=== PATIENT | female | born 1955 | race Caucasian/White ===

== ENCOUNTER 2017-04-05 01:37 | Emergency (ER) | payer MEDICARE, OTHER ==
[~2017-04-05] VITALS: Ht 157.5 cm; Wt 81.6 kg
[~2017-04-05 01:37] MED LIST: AMLO5TAB4 PO; AMOX500C2 PO; ARIP2TAB10 PO; BETA15CR37 TP; CIPR500T78 PO; CLIN300C3 PO; DESV50TA PO; FAMO-119 PO; FLUO40CA PO; HYDR-3062 PO; HYDR-3456 PO; HYDR-3876 PO; HYDR12.5 PO; HYDR28CR19 TP; HYOS0.1216 PO; IBUP-1780 PO; IBUP200T48 PO; LORA-405 PO; LORA10TA7 PO; LOSA50TA36 PO; LOSA50TA6 PO; METH4TAB PO; NAPR-243 PO; NAPR-689 PO; NAPR220C11 PO; NAPR500T3 PO; NITR50CA4 PO; PHEN200T27 PO; QUET50TA43 PO; SULF-222 PO; TRAZ150T72 PO; ZLP10T PO; bp med; hydrocodone; losartan
--- NOTE | 2017-04-05 01:52 | ED Fall/Injury ---
General Stated Complaint: HEAD LAC Source: patient, family (son) Exam Limitations: no limitations History of Present Illness Time seen by provider: 01:51 Initial Comments Patient was walking in the driveway and fell tripped and landed face first onto a stephanie. She had profuse bleeding from her front or head. She has bit of a headache and tenderness on her left church. She's not having any nausea or pain anywhere else. Denies any dysuria, shortness of breath, chest pain, fever. Allergies and Home Medications Allergies Coded Allergies: No Known Drug Allergies (Unverified , 01/05/10) Home Medications Amlodipine Besylate 5 Mg Tablet, 5 MG PO DAILY, #30 Prescribed by: NATACHA BARKSDALE on 07/29/16 1131 Fluoxetine HCl 40 Mg Capsule, 40 MG PO DAILY, (Reported) Hydrochlorothiazide 12.5 Mg Capsule, 12.5 MG PO DAILY@0900, #30 Prescribed by: NATACHA BARKSDALE on 07/29/16 1131 Loratadine 10 Mg Tablet, 10 MG PO DAILY, (Reported) Losartan Potassium 50 Mg Tablet, 100 MG PO DAILY, #30 Prescribed by: NATACHA BARKSDALE on 07/29/16 1131 Trazodone HCl 150 Mg Tablet, 150 MG PO HS, (Reported) Constitutional: No chills, No diaphoresis, No fever Eyes: Denies Blindness, Denies Blurred Vision, Denies Drainage Ears, Nose, Mouth, Throat: denies ear pain, denies ear discharge Respiratory: No cough, No short of breath Cardiovascular: No chest pain, No palpitations Gastrointestinal: No abdominal pain, No constipation, No diarrhea, No nausea Genitourinary: No dysuria, No frequency Musculoskeletal: No back pain, No joint pain Skin: No pruritus, No rash, other (laceration left forehead) Psychiatric/Neurological: Headache, Denies Numbness, Denies Paresthesia Past Pfnwabs-Qfkydh-Rmqaho Hx Patient Social History Alcohol Use: Denies Use Recreational Drug Use: No Smoking Status: Never a Smoker Recent Foreign Travel: No Contact w/Someone Who Travel: No Recent Hopitalizations: No Immunizations Up To Date Tetanus Booster (TDap): Less than 5yrs Seasonal Allergies Seasonal Allergies: No Surgeries HX Surgeries: Yes (cataract) Surgeries: Eye Surgery, Joint Replacement, Orthopedic, Renal Respiratory Hx Respiratory Disorders: No Cardiovascular Hx Cardiac Disorders: Yes Cardiac Disorders: Hypertension Neurological Hx Neurological Disorders: No Reproductive System Hx Reproductive Disorders: No Sexually Transmitted Disease: No HIV/AIDS: No Female Reproductive Disorders: Denies Genitourinary Hx Genitourinary Disorders: Yes Genitourinary Disorders: Kidney Stones Gastrointestinal Hx Gastrointestinal Disorders: Yes Gastrointestinal Disorders: Gastroesophageal Reflux Musculoskeletal Hx Musculoskeletal Disorders: Yes (ARTHRITIS, DJD) Musculoskeletal Disorders: Degenerate Disk Disease, Arthritis, Chronic Back Pain Endocrine Hx Endocrine Disorders: No HEENT HX ENT Disorders: No Cancer Hx Cancer: No Psychosocial Hx Psychiatric Problems: Yes Behavioral Health Disorders: Anxiety, Depression Integumentary HX Skin/Integumentary Disorder: No Blood Transfusions Hx Blood Disorders: No Adverse Reaction to a Blood Tr: No Family Medical History Significant Family History: No Pertinent Family Hx Family Medial History: Diabetes mellitus G8 SISTER Hypertension 19 MOTHER Physical Exam Vital Signs Vital Sign - Last 12Hours 04/05/17 01:46 Temp 98.1 Pulse 82 Resp 20 B/P (MAP) 201/119 Pulse Ox 99 O2 Delivery Room Air Capillary Refill : General Appearance: WD/WN, mild distress HEENT: PERRL/EOMI, normal ENT inspection, TMs normal, pharynx normal Neck: non-tender, full range of motion, supple, normal inspection Cardiovascular: normal peripheral pulses, regular rate, rhythm, no edema Respiratory: chest non-tender, lungs clear, normal breath sounds Peripheral Pulses: 3+ Dorsalis Pedis (R), 3+ Left Dors-Pedis (L) Gastrointestinal: normal bowel sounds, non tender, soft Back: normal inspection, no vertebral tenderness Extremities: normal range of motion, non-tender, normal inspection, normal capillary refill 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, no motor/sensory deficits, alert, oriented x 3 Skin: normal color, warm/dry [place] Coma Score Best Eye Response: (4) Open Spontaneously Best Verbal Response: (5) Oriented Best Motor Response: (6) Obeys Commands [place] Total: 15 Laceration Repair : Wound Location: Scalp Wound Length (cm): 3 Wound's Depth, Shape: linear, sub Q Wound Explored: clean Irrigated w/ Saline (ccs): 25 Anesthesia: 1% Lidocaine Volume Anesthetic (ccs): 8 Wound Debrided: minimal Suture: Ethlion Suture Size: 4-0 Number of Sutures: 7 Layer Closure?: 1 Sterile Dressing Applied?: Yes Progress Clean the site with chlorhexidine. Infiltrated with 1% lidocaine. Soon as the patient was numbed with then explored the wound no foreign debris was removed. Irrigated and began suturing with 4-0 Ethilon. 7 sutures. Patient tolerated the procedure well. Dressing with T A O applied Progress/Results/Core Measures Results/Orders My Orders Orders - BIENVENIDO QUINTERO Ct Head/Cervical Spine Wo (04/05/17 01:52) Lidocaine/Epi 2% 1:100,000 (Xylocaine/Ep (04/05/17 02:30) Lidocaine 2% Injection 20 Ml (Xylocaine (04/05/17 02:30) Lidocaine 2% Injection 20 Ml (Xylocaine (04/05/17 02:22) Dipht,Pertuss(Acell),Tet Adult (Boostrix (04/05/17 03:00) Medications Given in ED Current Medications Medications Dose Ordered Sig/Sameer Route Start Time Stop Time Status Last Admin Dose Admin Diphtheria/ Tetanus/Acell Pertussis 0.5 ml ONCE ONCE IM 04/05/17 03:00 04/05/17 03:01 DC 04/05/17 03:10 0.5 ML Lidocaine HCl 20 ml ONCE ONCE INJ 04/05/17 02:30 04/05/17 02:31 DC 04/05/17 02:33 20 ML Vital Signs/I&O Vital Sign - Last 12Hours 04/05/17 01:46 Temp 98.1 Pulse 82 Resp 20 B/P (MAP) 201/119 Pulse Ox 99 O2 Delivery Room Air Progress Note : Time: 02:06 Progress Note 61-year-old not on blood thinners. We'll get her head scan shows a pretty significant scalp laceration and head tenderness. Afterwards we'll give her some back up. She is not getting any reason to think that it be infectious etiology for her fall. Diagnostic Imaging Diagonstic Imaging: CT Plain Films/CT/US/NM/MRI: head Comments No bleed, mass effect, intracranial shift, fracture noted on CT No intracranial mass effect, mass lesion or hemorrhage. There is no evidence of acute infarct or hydrocephalus. Periventricular subcortical white matter hypodensities are seen which most likely a sequela of chronic hypervascular ischemic disease. The status is post bilateral lens replacement. The paranasal sinuses right mastoid air cells and tympanic cavities appear normal. Partial opacification right mastoid air cells. There is no skull fracture. There is a small left frontal scalp laceration. C-spine with minimal anterolisthesis of C3 on C4 and C4 on C5. There is no cervical spine fracture or subluxation or epidural hematoma. there's per vertebral soft tissue tissues appear normal. Reviewed: Reviewed [place] Hawk Study, Reviewed by Me Departure Impression Impression: Primary Impression: Fall Qualified Codes: W19.XXXA - Unspecified fall, initial encounter Additional Impression: Laceration of scalp Qualified Codes: S01.01XA - Laceration without foreign body of scalp, initial encounter Disposition: HOME, SELF-CARE Condition: Improved Departure-Patient Inst. Decision time for Depature: 03:20 Referrals: RADHA REYNOSO MD (PCP/Family) Primary Care Physician Patient Instructions: Laceration Repair With Stitches (DC), Laceration Repair With Nael (DC), Laceration Repair With Glue (DC) Add. Discharge Instructions: Keep the wound cleaned with gentle soap and water. It will be okay to bathe after 2-3 days otherwise showers only. Tylenol or ibuprofen for your pain as well as a cold pack. If your wound is getting red and has drainage or you start having fevers chills or worsening pain you can return to the ER or follow up with your doctor. Plan on seeing your doctor in 5-7 days to have the stitches removed or you may return to the ER to have the stitches removed. Copy Copies To 1: RADHA REYNOSO MD, TITUS J Apr 05, 2017 01:52
[2017-04-05] MEDS ORDERED: LIDOCAINE 2% 20 ML (XYLOCAINE) VIAL ONE (02:22)
[2017-04-05] MEDS ORDERED: LIDOCAINE/EPI 2% 1:100,00 (XYLOCAINE) 20 ML VIAL INJ ONE (02:30)
[2017-04-05] MEDS ORDERED: LIDOCAINE 2% 20 ML (XYLOCAINE) VIAL INJ ONE (02:30)
[2017-04-05] MEDS ORDERED: TETANUS,DIPTH,PERTUSS P/F (BOOSTRIX) 0.5 ML VIAL IM ONE (03:00)
[2017-04-05 03:29] VITALS: BP 188/99
--- NOTE | 2017-04-05 07:33 | Diagnostic Imaging Report ---
PROCEDURE: CT head and CT cervical spine without contrast. TECHNIQUE: Multiple contiguous axial images were obtained through the brain and cervical spine without the use of intravenous contrast. Sagittal and coronal reformations through the cervical spine were then performed. INDICATION: Fall. COMPARISON: None. CT HEAD: Age-related cerebral volume loss and chronic small vessel ischemic changes are present. There was no midline shift or mass effect. There was no hemorrhage or evidence of acute ischemia. Chronic lacunar infarcts are present. The bony calvarium is normal. Paranasal sinuses and mastoids are clear IMPRESSION: 1. No acute abnormality. 2. Age-related cerebral volume loss and chronic small vessel ischemic changes. 3. Chronic appearing lacunar infarcts. CT CERVICAL SPINE: Alignment is normal. There is no subluxation or fracture. Multilevel degenerative changes are seen throughout the disc spaces and facet joints. Multilevel foraminal and central canal stenosis is seen. There is no osseous lesion. IMPRESSION: No traumatic malalignment or fracture. Dictated by: Dictated on workstation # [id number]
== END 2017-04-05 03:29 | disposition home or self-care (01) ==
LOC: EDUNIT# 01:37 → ER 01:39
DX: S01.01XA Laceration without foreign body of scalp, initial encounter (principal); F41.9 Anxiety disorder, unspecified; F32.9 Major depressive disorder, single episode, unspecified; M47.9 Spondylosis, unspecified; K21.9 Gastro-esophageal reflux disease without esophagitis; I10 Essential (primary) hypertension; Z87.442 Personal history of urinary calculi; Z96.659 Presence of unspecified artificial knee joint; W01.198A Fall on same level from slipping, tripping and stumbling with subsequent striking against other object, initial encounter
CPT/HCPCS: 70450; 72125; 90471; 90715; 99284

== ENCOUNTER 2017-04-11 11:37 | Emergency (ER) | payer MEDICARE ==
[~2017-04-11] VITALS: Ht 157.5 cm; Wt 83.9 kg
--- OUTSIDE RECORDS SUMMARY | 2017-04-11 11:43 | XMS REPORT ---
Author Author REGINA BUCHANAN Organization [employer] Address Unknown Phone Unavailable Care Team Providers Care Manager Environmental Health And Safety Name Role Phone REGINA BUCHANAN CP Unavailable Allergies No Known Allergies Problems Problem Type Condition Code Onset Dates Condition Status Problem Arthritis M19.90 Active Problem Mood disorder F39 Active Problem Allergic rhinitis, unspecified allergic rhinitis trigger, unspecified rhinitis seasonality J30.9 Active Assessment Mood disorder F39 Active Assessment Allergic rhinitis, unspecified allergic rhinitis trigger, unspecified rhinitis seasonality J30.9 Active Assessment Arthritis M19.90 Active Medications Medication Code System Code Instructions Start Date End Date Status Dosage Claritin [facility] [address]-74 10 MG Orally Once a day 1 tablet Ibuprofen [facility] [address]-45 800 MG Orally Three times a day 1 tablet Procedures Procedure Coding System Code Date Office Visit, New Pt., Level 2 CPT-4 33788 Jun 25, 2016 Vital Signs Date/Time: Jun 25, 2016 Cardiac Monitoring Heart Rate 80 bpm Weight 188 lbs Height 62 in BMI 34.38 Index Blood Pressure Diastolic 64 mmHg Blood Pressure Systolic 110 mmHg Results No Known Results Summary Purpose [employer] Submission
--- OUTSIDE RECORDS SUMMARY | 2017-04-11 11:43 | XMS REPORT ---
Author Author REGINA BUCHANAN [facility] [employer] Address Unknown Phone Unavailable Care Team Providers Care Banquet Pilot Name Role Phone REGINA BUCHANAN CP Unavailable Allergies No Known Allergies Problems Problem Type Condition Code Onset Dates Condition Status Assessment Elevated blood pressure I10 Active Assessment Well woman exam Z01.419 Active Assessment Hypertension, benign I10 Active Problem Other chronic pain G89.29 Active Problem Uterine prolapse N81.4 Active Problem Hypertension, benign I10 Active Problem Arthritis M19.90 Active Problem Mood disorder F39 Active Problem Elevated blood pressure I10 Active Problem Allergic rhinitis, unspecified allergic rhinitis trigger, unspecified rhinitis seasonality J30.9 Active Assessment Pain in right hip M25.551 Active Assessment Other chronic pain G89.29 Active Assessment Pain in left knee M25.562 Active Medications No Known Medications Procedures Procedure Coding System Code Date COMPLETE CBC W/AUTO DIFF WBC CPT-4 44197 Jul 17, 2016 GLYCATED HEMOGLOBIN TEST CPT-4 31431 Jul 17, 2016 COMPREHEN METABOLIC PANEL CPT-4 31574 Jul 17, 2016 X-RAY EXAM OF KNEE, 1 OR 2 CPT-4 62998 Jul 17, 2016 LIPID PANEL CPT-4 19904 Jul 17, 2016 VENIPUNCT, ROUTINE* CPT-4 30122 Jul 17, 2016 X-RAY EXAM HIP UNI 2-3 VIEWS CPT-4 79682 Jul 17, 2016 Results Name Result Date Reference Range Unit Abnormality Flag CBC ----Lymphs 39 66081376 % ----Neutrophils 49 08148318 % ----Baso (Absolute) 0.0 [id number] 0.0-0.2 x10E3/uL ----Hemoglobin 12.7 92149238 11.1-15.9 g/dL ----Eos (Absolute) 0.4 81922354 0.0-0.4 x10E3/uL ----Hematocrit 38.6 14815367 34.0-46.6 % ----Monocytes(Absolute) 0.3 13860131 0.1-0.9 x10E3/uL ----MCV 86 67757618 79-97 fL ----Lymphs (Absolute) 2.3 01951667 0.7-3.1 x10E3/uL ----MCH 28.2 39227381 26.6-33.0 pg ----Neutrophils (Absolute) 2.9 69854700 1.4-7.0 x10E3/uL ----MCHC 32.9 24919304 31.5-35.7 g/dL ----Immature Granulocytes 0 87081145 % ----Basos 1 83165714 % ----RDW 14.7 58131402 12.3-15.4 % ----Immature Grans (Abs) 0.0 92084082 0.0-0.1 x10E3/uL ----WBC 5.8 59071664 3.4-10.8 x10E3/uL ----Platelets 256 67209178 150-379 x10E3/uL ----Eos 6 91196805 % ----RBC 4.50 11335850 3.77-5.28 x10E6/uL ----Monocytes 5 39345916 % LIPID PANEL ----LDL Cholesterol Calc 83 65254357 0-99 mg/dL ----VLDL Cholesterol Alberto 10 24342134 5-40 mg/dL ----Cholesterol, Total 177 75556111 100-199 mg/dL ----HDL Cholesterol 84 22400825 >39 mg/dL ----Triglycerides 49 16988781 0-149 mg/dL ROUTINE VENIPUNCTURE A1C ----Hemoglobin A1c 5.7 79802169 4.8-5.6 % H Xray : Knee, Left 1-2 views (IN HOUSE) CMP ----Potassium, Serum 4.5 45729203 3.5-5.2 mmol/L ----Sodium, Serum 144 25383024 136-144 mmol/L ----BUN/Creatinine Ratio 19 07058723 -26 ----eGFR If Africn Am 84 35092352 >59 mL/min/1.73 ----eGFR If NonAfricn Am 73 49530986 >59 mL/min/1.73 ----Creatinine, Serum 0.86 76586612 0.57-1.00 mg/dL ----BUN 16 20160717 8-27 mg/dL ----Glucose, Serum 79 66228121 65-99 mg/dL ----AST (SGOT) 16 20160717 0-40 IU/L ----Globulin, Total 2.4 63792778 1.5-4.5 g/dL ----ALT (SGPT) 8 20160717 0-32 IU/L ----A/G Ratio 1.7 20160717 1.1-2.5 ----Bilirubin, Total 0.4 58049029 0.0-1.2 mg/dL ----Alkaline Phosphatase, S 74 20160717 39-117 IU/L ----Carbon Dioxide, Total 27 20160717 18-29 mmol/L ----Calcium, Serum 9.7 50932822 8.7-10.3 mg/dL ----Protein, Total, Serum 6.5 36344234 6.0-8.5 g/dL ----Albumin, Serum 4.1 93367586 3.6-4.8 g/dL ----Chloride, Serum 103 04136199 97-106 mmol/L Xray : Hip, Right 2 views (IN HOUSE) Summary Purpose [employer] Submission
--- OUTSIDE RECORDS SUMMARY | 2017-04-11 11:43 | XMS REPORT ---
Author Author MIGUELINA RIVAS Organization [employer] Address Unknown Phone Unavailable Care Team Providers Care Relations Director Name Role Phone MIGUELINA RIVAS CP Unavailable Allergies, Adverse Reactions, Alerts Substance Reaction Event Type N.K.D.A. Info Not Available Non Drug Allergy Problems Problem Type Condition Code Onset Dates Condition Status Assessment Uterine prolapse N81.4 Active Assessment Pain in left knee M25.562 Active Assessment Other chronic pain G89.29 Active Assessment Elevated blood pressure I10 Active Problem Uterine prolapse N81.4 Active Problem Elevated blood pressure I10 Active Problem Other chronic pain G89.29 Active Problem Mood disorder F39 Active Assessment Well woman exam Z01.419 Active Problem Allergic rhinitis, unspecified allergic rhinitis trigger, unspecified rhinitis seasonality J30.9 Active Problem Arthritis M19.90 Active Medications Medication Code System Code Instructions Start Date End Date Status Dosage Claritin [facility] [address]-68 10 MG Orally Once a day 1 tablet Trazodone HCl [facility] [address]-97 150 MG Orally Once a day 1 tablet at bedtime as needed Fluoxetine HCl [facility] [address]-14 40 MG Orally Once a day 1 capsule in the morning Naprosyn [facility] [address]-02 500 MG Orally every 12 hrs Jul 04, 2016 November 01, 2016 1 tablet as needed Procedures Procedure Coding System Code Date Office Visit, Est Pt., Level 4 CPT-4 83847 Jul 04, 2016 Vital Signs Date/Time: Jul 04, 2016 Cardiac Monitoring Heart Rate 78 bpm Weight 191.0 lbs Height 62 in BMI 34.93 Index Blood Pressure Diastolic 100 mmHg Blood Pressure Systolic 160 mmHg Results No Known Results Summary Purpose [employer] Submission
--- OUTSIDE RECORDS SUMMARY | 2017-04-11 11:44 | XMS REPORT ---
Author Author REGINA BUCHANAN Organization [employer] Address Unknown Phone Unavailable Care Team Providers Care Prospect Manager Name Role Phone REGINA BUCHANAN CP Unavailable Allergies No Known Allergies Problems Problem Type Condition Code Onset Dates Condition Status Assessment Pain in right hip M25.551 Active Assessment Hypertension, benign I10 Active Assessment Other chronic pain G89.29 Active Assessment Pain in left knee M25.562 Active Problem Other chronic pain G89.29 Active Problem Uterine prolapse N81.4 Active Problem Hypertension, benign I10 Active Problem Arthritis M19.90 Active Problem Mood disorder F39 Active Problem Elevated blood pressure I10 Active Problem Allergic rhinitis, unspecified allergic rhinitis trigger, unspecified rhinitis seasonality J30.9 Active Medications No Known Medications Procedures Procedure Coding System Code Date Office Visit, Est Pt., Level 2 CPT-4 45419 Jul 16, 2016 Vital Signs Date/Time: Jul 16, 2016 Cardiac Monitoring Heart Rate 72 bpm Weight 192 lbs Height 62 in BMI 35.11 Index Blood Pressure Diastolic 90 mmHg Blood Pressure Systolic 154 mmHg Results No Known Results Summary Purpose [employer] Submission
--- OUTSIDE RECORDS SUMMARY | 2017-04-11 11:44 | XMS REPORT ---
Author Author MIGUELINA RIVAS Organization [employer] Address Unknown Phone Unavailable Care Team Providers Care Completion Manager Name Role Phone MIGUELINA RIVAS CP Unavailable Allergies No Known Allergies Problems Problem Type Condition Code Onset Dates Condition Status Problem Uterine prolapse N81.4 Active Problem Elevated blood pressure I10 Active Problem Other chronic pain G89.29 Active Problem Mood disorder F39 Active Problem Allergic rhinitis, unspecified allergic rhinitis trigger, unspecified rhinitis seasonality J30.9 Active Problem Arthritis M19.90 Active Medications No Known Medications Results No Known Results Summary Purpose [employer] Submission
[2017-04-11 12:15] VITALS: BP 153/89
== END 2017-04-11 12:32 | disposition home or self-care (01) ==
LOC: EDUNIT# 11:37 → ER 11:39
DX: S01.81XD Laceration without foreign body of other part of head, subsequent encounter (principal); X58.XXXD Exposure to other specified factors, subsequent encounter